=== PATIENT | male | born 1940 | race Caucasian/White ===

== ENCOUNTER 2018-03-29 17:42 | Emergency (ER) | payer OTHER, MEDICARE ==
[~2018-03-29] VITALS: Ht 182.9 cm; Wt 90.0 kg
[2018-03-29 17:42] VITALS: O2SAT 96
[2018-03-29] MEDS ORDERED: DIPHTH/TETANUS/ACEL PERTUSSIS (BOOSTER) 0.5 ML VIAL/PFS IM ONE (17:48)
[2018-03-29 18:05] VITALS: BP 124/59; PULSE 74; RESP 16; O2SAT 100
[2018-03-29 18:08] LABS: AUTOMATED NEUTROPHIL # 5.7 TH/MM3 (1.8-7.7); BASOPHIL # 0.1 TH/MM3 (0-0.2); BASOPHIL % 0.9 % (0.0-2.0); EOSINOPHIL # 0.1 TH/MM3 (0-0.4); EOSINOPHIL % 0.6 % (0.0-4.0); HEMATOCRIT 42.3 % (39.0-51.0); HEMOGLOBIN 14.3 GM/DL (13.0-17.0); LYMPH % 22.2 % (9.0-44.0); LYMPHOCYTE # 1.9 TH/MM3 (1.0-4.8); MEAN CELL VOLUME 97.8 FL (80.0-100.0); MEAN CORPUSCULAR HEMOGLOBIN 33.2 PG (27.0-34.0); MEAN CORPUSCULAR HGB CONC 33.9 % (32.0-36.0); MEAN PLATELET VOLUME 7.8 FL (7.0-11.0); MONO % 8.3 % (0.0-8.0); MONOCYTE # 0.7 TH/MM3 (0-0.9); PLATELET COUNT 228 TH/MM3 (150-450); RED BLOOD COUNT 4.33 MIL/MM3 (4.50-5.90); RED CELL DISTRIBUTION WIDTH 15.2 % (11.6-17.2); WHITE BLOOD COUNT 8.4 TH/MM3 (4.0-11.0)
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
[2018-03-29 18:22] LABS: PROTHROMBIN TIME - PATIENT 10.4 SEC (9.8-11.6)
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
[2018-03-29] MEDS ORDERED: IOHEXOL 350 MG/ML 10 ML VIAL (for RAD DIAG) IVCONTRAST ONE (18:28)
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
[2018-03-29 19:18] VITALS: BP 136/75; PULSE 76; RESP 18; O2SAT 99
[2018-03-29 22:00] VITALS: BP 145/65
== END 2018-03-29 22:14 | disposition home or self-care (01) ==
LOC: EDBD → NEPI 17:42 → NEPE 22:14
DX: F10.129 Alcohol abuse with intoxication, unspecified (principal); Y90.6 Blood alcohol level of 120-199 mg/100 ml; V49.9XXA Car occupant (driver) (passenger) injured in unspecified traffic accident, initial encounter; Z23 Encounter for immunization
CPT/HCPCS: 70450; 71045; 71260; 72125; 72129; 72132; 72170; 74177; 80048; 80307; 85025; 85610; 85730; 86850; 86900; 86901; 90471; 90715; 99285; 99291; Q9967; G0390

== ENCOUNTER 2018-03-31 09:29 | Emergency (ER) | payer OTHER, MEDICARE ==
[~2018-03-31] VITALS: Ht 180.3 cm; Wt 90.0 kg
[2018-03-31 09:35] VITALS: BP 138/72; PULSE 72; RESP 18; TEMP 98.4; O2SAT 96
[2018-03-31] MEDS ORDERED: ACETAMINOPHEN/HYDROcodone 325 MG/5 MG TAB PO ONE (09:45)
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
[2018-03-31] MEDS ORDERED: CARV6.252 PO (09:54)
[2018-03-31] MEDS ORDERED: HYDR25TA5 PO (09:54)
[2018-03-31] MEDS ORDERED: FISHCAP4 PO (09:54)
[2018-03-31] MEDS ORDERED: ASPI-516 CHEW (09:54)
[2018-03-31] MEDS ORDERED: MULTTAB67 PO (09:54)
[2018-03-31] MEDS ORDERED: SERT25TA83 PO (09:54)
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
[2018-03-31] MEDS ORDERED: BACL10TA PO (10:26)
[2018-03-31 10:53] VITALS: RESP 15
== END 2018-03-31 10:49 | disposition home or self-care (01) ==
LOC: EDBD 09:29 → NEPD 09:29
DX: S16.1XXD Strain of muscle, fascia and tendon at neck level, subsequent encounter (principal); V48.9XXD Unspecified car occupant injured in noncollision transport accident in traffic accident, subsequent encounter; Z79.82 Long term (current) use of aspirin; Z79.899 Other long term (current) drug therapy
CPT/HCPCS: 72040; 99283

== ENCOUNTER 2018-04-04 07:08 | Emergency (ER) | payer MEDICARE | END 2018-04-04 13:36 | disposition home or self-care (01) | LOC: NEPE 07:08 | DX: M48.02 Spinal stenosis, cervical region (principal); M47.12 Other spondylosis with myelopathy, cervical region; M54.2 Cervicalgia; I10 Essential (primary) hypertension | CPT/HCPCS: 72141; 99284 ==

== ENCOUNTER 2018-04-05 12:03 | Emergency (ER) | payer MEDICARE ==
[~2018-04-05] VITALS: Ht 180.3 cm; Wt 88.0 kg
[~2018-04-05 12:03] MED LIST: ASPI-516 CHEW; BACL10TA PO; CARV6.252 PO; FISHCAP4 PO; HYDR25TA5 PO; MULTTAB67 PO; SERT25TA83 PO
[2018-04-05 12:07] VITALS: BP 99/57; PULSE 80; RESP 20; TEMP 97.1; O2SAT 98
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
== END 2018-04-05 13:32 | disposition home or self-care (01) ==
LOC: NEPD 12:03
DX: S50.811D Abrasion of right forearm, subsequent encounter (principal); R04.0 Epistaxis; X58.XXXD Exposure to other specified factors, subsequent encounter
CPT/HCPCS: 99282